=== PATIENT | male | born 1970 | race Caucasian/White ===

== ENCOUNTER 2020-01-12 12:53 | Emergency (ER) | payer OTHER ==
[~2020-01-12] VITALS: Ht 180.3 cm; Wt 108.0 kg
[2020-01-12 12:54] VITALS: BP 136/89
--- NOTE | 2020-01-12 13:03 | NUR ---
Patient ambulated to bed 2. RN evaluating patient at bedside.
--- NOTE | 2020-01-12 13:15 | NUR ---
49 y/o male from home c/o "vibration" in chest x 3 days. States it feels as if his heart is racing. Denies pain at this time. RR even and unlabored. Skin warm, dry, intact. Seated upright in bed awake and alert. VSS
--- NOTE | 2020-01-12 13:35 | NUR ---
DR. NUNEZ AT BEDSIDE EVALUATING PT.
--- NOTE | 2020-01-12 13:43 | NUR ---
PT PLACED ON 3 LEAD ECG AND PULSE OX.
[2020-01-12 14:12] LABS: BASOPHILS % (AUTO) 0.4 % (0.0-2.0); EOSINOPHILS # (AUTO) 0.1 K/uL (0-0.4); EOSINOPHILS % (AUTO) 1.5 % (0.0-4.0); HEMATOCRIT 46.7 % (36-52); LYMPHOCYTES # (AUTO) 2.1 K/uL (2.0-11.5); LYMPHOCYTES % (AUTO) 22.6 % (20.5-51.1); MEAN CORPUSCULAR HEMOGLOBIN 31 pg (27-31); MEAN CORPUSCULAR HGB CONC 34 g/dL (33-37); MEAN CORPUSCULAR VOLUME 89.7 fL (80-94); MONOCYTES # (AUTO) 0.7 K/uL (0.8-1.0); MONOCYTES % (AUTO) 7.1 % (1.7-9.3); NEUTROPHILS # (AUTO) 6.4 K/uL (1.8-7.7); NEUTROPHILS % (AUTO) 68.4 % (42.2-75.2); PLATELET COUNT (AUTO) 175 K/uL (140-450); RED CELL DISTRIBUTION WIDTH 13.9 % (11.6-13.7); WHITE BLOOD COUNT (AUTO) 9.4 K/uL (4.8-10.8)
[2020-01-12 14:23] LABS: ANION GAP 14.8 (8-16); CARBON DIOXIDE 25.2 mmol/L (21-32); CREATININE 1.4 mg/dL (0.6-1.3)
--- NOTE | 2020-01-12 14:45 | NUR ---
XR AT BEDSIDE.
--- NOTE | 2020-01-12 15:27 | NUR ---
VS WNL. PT GIVEN A BLANKET FOR COMFORT AND WATER. BED IN LOWEST POSITION, SIDE RAIL UP X 1.
[2020-01-12 15:32] VITALS: BP 123/74
--- NOTE | 2020-01-12 15:33 | NUR ---
Patient discharged with v/s stable. Written and verbal after care instructions given and explained. Patient verbalized understanding. Ambulatory with steady gait. All questions addressed prior to discharge. Advised to follow up with PMD.
== END 2020-01-12 15:33 | disposition home or self-care (01) ==
LOC: MED 12:53
DX: R00.2 Palpitations (principal)
CPT/HCPCS: 36415; 71045; 80048; 84484; 85025; 93005; 99285